=== PATIENT | male | born 1960 | race Caucasian/White ===

== ENCOUNTER 2019-11-10 02:46 | Inpatient (IN) | payer BC ==
[2019-11-10] MEDS ORDERED: SODIUM CHLORIDE 0.9% 1,000 ML IV STA (02:48)
[2019-11-10 03:15] LABS: Anisocytosis Slight; Basophils % (A) 0 %; Eosinophils # (A) 0.1 k/uL (0-0.7); Eosinophils % (A) 1 %; HCT 28.1 % (39.0-53.0); HGB 8.6 gm/dL (13.0-17.5); Hypochromasia Slight; Lymphocytes % (A) 26 %; MCH 26.1 pg (25.0-35.0); MCHC 30.8 g/dL (31.0-37.0); MCV 84.7 fL (80.0-100.0); Monocytes # (A) 0.5 k/uL (0-1.0); Monocytes % (A) 6 %; Neutrophils # (A) 5.1 k/uL (1.3-7.7); Neutrophils % (A) 65 %; Platelet Count 191 k/uL (150-450); RBC 3.32 m/uL (4.30-5.90); RDW 18.5 % (11.5-15.5); WBC 7.8 k/uL (3.8-10.6)
[2019-11-10 03:28] LABS: ALT 33 U/L (4-49); AST 68 U/L (17-59); African American GFR (CKD) >90 (>60 ml/min/1.73 sqM); Alkaline Phosphatase 68 U/L (38-126); Anion Gap 8 mmol/L; Blood Urea Nitrogen 27 mg/dL (9-20); Calcium 8.4 mg/dL (8.4-10.2); Carbon Dioxide 20 mmol/L (22-30); Chloride 109 mmol/L (98-107); Glucose 109 mg/dL (74-99); Non-African American GFR(CKD) >90 (>60 ml/min/1.73 sqM); Potassium 4.3 mmol/L (3.5-5.1); Sodium 137 mmol/L (137-145); Total Bilirubin 1.2 mg/dL (0.2-1.3); Total Protein 6.6 g/dL (6.3-8.2)
[2019-11-10 03:30] LABS: INR 1.4 (<1.2); Partial Thromboplastin Time 25.7 sec (22.0-30.0)
--- NOTE | 2019-11-10 03:30 | ED ---
GI Bleed HPI - General Stated complaint: GI Bleed Time Seen by Provider: 11/10/19 02:48 Source: patient, EMS Mode of arrival: EMS Limitations: no limitations - History of Present Illness Initial comments: Ash is a 59-year-old alcoholic male who presents to the ER today via EMS for evaluation of upper GI bleed. Patient reports that he is a daily drinker, he states that he was hospitalized in an in-hospital on [facility] at the beginning of July. He states that he underwent an emergency procedure due to upper GI bleeding at that time and was told that his chronic cough is caused him to have his esophagus rupture. Patient reports he receive blood transfusion anoscope and was told that he was cauterized at that time. Amauri coombs reports he has continued to drink since that time he reports that he usually has a couple beers after work everyday. He states that he only had one beer yesterday and felt nauseated so he decided to lay down. Patient states he had an episode of bloody vomit however early in the morning this morning November 09 he had a large volume but he vomit which prompted him to call EMS. Patient denies any chest pain palpitations lightheadedness. He's not certain what is hemoglobin was after discharge from his previous hospitalization but does state that he received at least 2 units of blood during the hospitalization. - Related Data Allergies Allergy/AdvReac Type Severity Reaction Status Date / Time No Known Allergies Allergy Verified 11/10/19 02:57 Review of Systems ROS Statement: Those systems with pertinent positive or pertinent negative responses have been documented in the HPI. ROS Other: All systems not noted in ROS Statement are negative. Past Medical History Additional Past Medical History / Comment(s): esophogeal bleed, hep C History of Any Multi-Drug Resistant Organisms: None Reported Additional Past Surgical History / Comment(s): esophogeal repair. Past Psychological History: No Psychological Hx Reported Smoking Status: Current every day smoker Past Alcohol Use History: Daily Past Drug Use History: Marijuana General Exam - General Exam Comments Initial Comments: Physical Exam GENERAL: Chronically ill-appearing 59-year-old male appears much older than stated age. HENT: Normocephalic, Atraumatic. Rhinophyma EYES: PERRL, EOMI Conjunctival pallor No scleral icterus PULMONARY: Unlabored respirations. CARDIOVASCULAR: There is a regular rate and rhythm without any murmurs gallops or rubs. ABDOMEN: Soft and nontender with normal bowel sounds. Mild epigastric discomfort to palpation SKIN: Skin is pale : Deferred NEUROLOGIC: Patient is alert and oriented x3. Moving all extremities spontaneously MUSCULOSKELETAL: Normal extremities with adequate strength and full range of motion. No lower extremity swelling or edema. No calf tenderness. PSYCHIATRIC: Normal psychiatric evaluation. Limitations: no limitations Course Vital Signs 11/10/19 11/10/19 02:54 03:43 Temperature 98.1 F Pulse Rate 95 87 Respiratory 18 18 Rate Blood Pressure 138/84 127/63 O2 Sat by Pulse 99 97 Oximetry Medical Decision Making - Medical Decision Making Patient was seen and evaluated, history is obtained from patient History and physical exam are concerning for alcoholic upper GI bleed Patient's hemodynamically stable with labs resulted with anemia uncertain of what the patient's baseline is however he has no hypotension or tachycardia therefore I have a high suspicion that this is likely a chronic anemia AST mildly elevated, INR mildly elevated In the patient's history and physical exam although he's had no vomiting here in the emergency department I do feel he warrants admission to the hospital for further evaluation by gastroenterology. Patient care was discussed with the on- call medical seen Dr. Luu agrees with plan for admission, IV medications as ordered, consult to gastroenterology. Considering the patient is hemodynam ically stable at this time with no vomiting does not warrant ICU admission. - Lab Data Result diagrams: 11/10/19 02:57 11/10/19 02:57 Lab Results 11/10/19 11/10/19 11/10/19 Range/Units 02:57 02:57 02:57 WBC 7.8 (3.8-10.6) k/uL RBC 3.32 L (4.30-5.90) m/uL Hgb 8.6 L (13.0-17.5) gm/dL Hct 28.1 L (39.0-53.0) % MCV 84.7 (80.0-100.0) fL MCH 26.1 (25.0-35.0) pg MCHC 30.8 L (31.0-37.0) g/dL RDW 18.5 H (11.5-15.5) % Plt Count 191 (150-450) k/uL Neutrophils % 65 % Lymphocytes % 26 % Monocytes % 6 % Eosinophils % 1 % Basophils % 0 % Neutrophils # 5.1 (1.3-7.7) k/uL Lymphocytes # 2.0 (1.0-4.8) k/uL Monocytes # 0.5 (0-1.0) k/uL Eosinophils # 0.1 (0-0.7) k/uL Basophils # 0.0 (0-0.2) k/uL Hypochromasia Slight Anisocytosis Slight PT 14.0 H (9.0-12.0) sec INR 1.4 H (<1.2) APTT 25.7 (22.0-30.0) sec Sodium 137 (137-145) mmol/L Potassium 4.3 (3.5-5.1) mmol/L Chloride 109 H (98-107) mmol/L Carbon Dioxide 20 L (22-30) mmol/L Anion Gap 8 mmol/L BUN 27 H (9-20) mg/dL Creatinine 0.58 L (0.66-1.25) mg/dL Est GFR (CKD-EPI)AfAm >90 (>60 ml/min/1.73 sqM) Est GFR (CKD-EPI)NonAf >90 (>60 ml/min/1.73 sqM) Glucose 109 H (74-99) mg/dL Plasma Lactic Acid Yogi (0.7-2.0) mmol/L Calcium 8.4 (8.4-10.2) mg/dL Total Bilirubin 1.2 (0.2-1.3) mg/dL AST 68 H (17-59) U/L ALT 33 (4-49) U/L Alkaline Phosphatase 68 (38-126) U/L Troponin I (0.000-0.034) ng/mL Total Protein 6.6 (6.3-8.2) g/dL Albumin 3.0 L (3.5-5.0) g/dL 11/10/19 11/10/19 Range/Units 02:57 02:57 WBC (3.8-10.6) k/uL RBC (4.30-5.90) m/uL Hgb (13.0-17.5) gm/dL Hct (39.0-53.0) % MCV (80.0-100.0) fL MCH (25.0-35.0) pg MCHC (31.0-37.0) g/dL RDW (11.5-15.5) % Plt Count (150-450) k/uL Neutrophils % % Lymphocytes % % Monocytes % % Eosinophils % % Basophils % % Neutrophils # (1.3-7.7) k/uL Lymphocytes # (1.0-4.8) k/uL Monocytes # (0-1.0) k/uL Eosinophils # (0-0.7) k/uL Basophils # (0-0.2) k/uL Hypochromasia Anisocytosis PT (9.0-12.0) sec INR (<1.2) APTT (22.0-30.0) sec Sodium (137-145) mmol/L Potassium (3.5-5.1) mmol/L Chloride (98-107) mmol/L Carbon Dioxide (22-30) mmol/L Anion Gap mmol/L BUN (9-20) mg/dL Creatinine (0.66-1.25) mg/dL Est GFR (CKD-EPI)AfAm (>60 ml/min/1.73 sqM) Est GFR (CKD-EPI)NonAf (>60 ml/min/1.73 sqM) Glucose (74-99) mg/dL Plasma Lactic Acid Yogi 3.1 H* (0.7-2.0) mmol/L Calcium (8.4-10.2) mg/dL Total Bilirubin (0.2-1.3) mg/dL AST (17-59) U/L ALT (4-49) U/L Alkaline Phosphatase (38-126) U/L Troponin I 0.021 (0.000-0.034) ng/mL Total Protein (6.3-8.2) g/dL Albumin (3.5-5.0) g/dL Disposition Clinical Impression: Upper gastrointestinal hemorrhage, Anemia, Alcohol abuse Disposition: ADMITTED IP TO THIS [facility] Condition: Serious Is patient prescribed a controlled substance at d/c from ED?: No Referrals: Nonstaff,Physician [Primary Care Provider] - 1-2 days
[2019-11-10] MEDS ORDERED: PANTOPRAZOLE 40 MG/10 ML VIAL IVP ONE (03:31)
[2019-11-10] MEDS ORDERED: ONDANSETRON 4 MG/2 ML VIAL IVP STA (03:31)
--- NOTE | 2019-11-10 04:06 | XR ---
EXAMINATION TYPE: XR abdomen acute w cxr DATE OF EXAM: 11/10/2019 COMPARISON: NONE HISTORY: Vomiting blood. TECHNIQUE: 4 views FINDINGS: Heart and mediastinum are normal. Lungs are clear of infiltrate. There is no pleural effusi on. There are no hilar masses. There is no sign of intestinal obstruction or pneumoperitoneum. Fecal pattern is normal. Bowel gas pa ttern is normal. There is no evidence of a mass. There are no pathologic calcifications over the kidn eys. There is almost empty density over the left mid abdomen that could be some medication. IMPRESSION: No active cardiopulmonary disease. Nonacute abdomen.
[2019-11-10] MEDS ORDERED: OCTREOTIDE 100 MCG/ML INJ IVP STA (04:41)
[2019-11-10] MEDS ORDERED: MORPHINE SULFATE 4 MG/ML SYRINGE IV PRN (04:42)
[2019-11-10] MEDS ORDERED: ONDANSETRON 4 MG/2 ML VIAL IVP PRN (04:42)
[2019-11-10] MEDS ORDERED: NALOXONE 0.4 MG/ML 1 ML VIAL IV PRN (04:42)
[2019-11-10] MEDS ORDERED: LORazepam 2 MG/ML INJ IV PRN ×2 (04:49)
[2019-11-10] MEDS ORDERED: THIAMINE 100 MG/ML 2 ML VIAL IM STA (04:49)
[2019-11-10] MEDS: OCTREOTIDE 500 MCG in SODIUM CHLORIDE 0.9% 250 ML IV STA ×2 (05:15→07:53)
[2019-11-10] MEDS ORDERED: SODIUM CHLORIDE 0.9% 1,000 ML IV SCH (06:30)
--- NOTE | 2019-11-10 06:59 | P.HPIM ---
History of Present Illness H&P Date: 11/10/19 Chief Complaint: GI bleed 59 year old with alcohol dependance and recent history of GI bleeding due to ? ruptured esophagus Patient reports that early in July in [place] he had an episode of GI bleeding required upper and lower endoscopy and needed some fixing something in his esophagus or stomach she is not sure of the details. He spent 3 days at the hospital and was discharged he doesn't know his blood level since then however he comes in today due to not feeling well all day yesterday and then throwing up just before sleeping at night very small amounts initially he thought that this was the cup cake that he ate but then later on after midnight he had another episode of vomiting very large amount of dark bloody and realized that she is having other episodes of GI bleeding this was also associated with dark bowel movement for which she decided come to the hospital for evaluation he didn't feel well he felt sweaty and tired. He also reported some epigastric pain rated it as 5 out of 10 in severity however he said since the procedure back in July she always had this pain. He said that he is not a heavy drinker anymore he only drinks 1 or 2 beers here and there is currently on vacation visiting here and he might had one or 2 beers yesterday he denies any IV drug abuse he admits to smoking and marijuana. He doesn't take any medications at home Currently he feels fine still has his chronic epigastric pain but denies any chest pain or trouble breathing denies any nausea or any further episodes of vomiting In the ED his hemoglobin was found to be 8.6 baseline is unknown and he had some elevated lactic acid Review of Systems Pertinent positives as noted in HPI. All other systems were reviewed and are negative Past Medical History Additional Past Medical History / Comment(s): esophogeal bleed, hep C History of Any Multi-Drug Resistant Organisms: None Reported Additional Past Surgical History / Comment(s): esophogeal repair. Past Psychological History: No Psychological Hx Reported Smoking Status: Current every day smoker Past Alcohol Use History: Daily Past Drug Use History: Marijuana Medications and Allergies Allergies Allergy/AdvReac Type Severity Reaction Status Date / Time No Known Allergies Allergy Verified 11/10/19 02:57 Physical Exam Vitals: Vital Signs Temp Pulse Resp BP Pulse Ox 11/10/19 05:33 87 18 147/89 97 11/10/19 03:43 87 18 127/63 97 11/10/19 02:54 98.1 F 95 18 138/84 99 Intake and Output 11/09/19 11/09/19 11/10/19 14:59 22:59 06:59 Other: Weight 63.503 kg Constitutional: No acute distress, conversant, pleasant Eyes: Anicteric sclerae, moist conjunctiva, no lid-lag Pupils equal round reactive to light ENMT: NC/AT Oropharynx clear, no erythema, exudates Neck: Supple, FROM, no masses, or JVD No carotid bruits No thyromegaly Lungs: Clear to auscultation Clear to percussion Normal respiratory effort, no accessory muscle use Cardiovascular: Heart regular in rate and rhythm, No murmurs, gallops, or rubs No peripheral edema Abdominal: Soft Mild discomfort to epigastric palpation, voluntary guarding, no rebound or rigidity Abdomen moving with respiration Normoactive bowel sounds No hepatomegaly, No splenomegaly No palpable mass No abdominal wall hernia noted Skin: Normal temperature, tone, texture, turgor No induration No subcutaneous nodules No rash, lesions No ulcers Extremities: No digital cyanosis No clubbing Pedal pulses intact and symmetrical Radial pulses intact and symmetrical No calf tenderness Psychiatric: Alert and oriented to person, place and time Appropriate affect fair judgement Neuro Muscles Strength 5/5 in all 4 extremities Sensation to light touch grossly present throughout Cranial nerves II-XII grossly intact No focal sensory deficits Lymphatics: no palpable cervical or supraclavicular , or inguinal lymph nodes Results CBC & Chem 7: 11/10/19 02:57 11/10/19 02:57 Labs: Abnormal Lab Results - Last 24 Hours (Table) 11/10/19 11/10/19 11/10/19 Range/Units 02:57 02:57 02:57 RBC 3.32 L (4.30-5.90) m/uL Hgb 8.6 L (13.0-17.5) gm/dL Hct 28.1 L (39.0-53.0) % MCHC 30.8 L (31.0-37.0) g/dL RDW 18.5 H (11.5-15.5) % PT 14.0 H (9.0-12.0) sec INR 1.4 H (<1.2) Chloride 109 H (98-107) mmol/L Carbon Dioxide 20 L (22-30) mmol/L BUN 27 H (9-20) mg/dL Creatinine 0.58 L (0.66-1.25) mg/dL Glucose 109 H (74-99) mg/dL Plasma Lactic Acid Yogi (0.7-2.0) mmol/L AST 68 H (17-59) U/L Albumin 3.0 L (3.5-5.0) g/dL 11/10/19 Range/Units 02:57 RBC (4.30-5.90) m/uL Hgb (13.0-17.5) gm/dL Hct (39.0-53.0) % MCHC (31.0-37.0) g/dL RDW (11.5-15.5) % PT (9.0-12.0) sec INR (<1.2) Chloride (98-107) mmol/L Carbon Dioxide (22-30) mmol/L BUN (9-20) mg/dL Creatinine (0.66-1.25) mg/dL Glucose (74-99) mg/dL Plasma Lactic Acid Yogi 3.1 H* (0.7-2.0) mmol/L AST (17-59) U/L Albumin (3.5-5.0) g/dL Assessment and Plan Assessment: Acute upper GI bleeding Acute blood loss anemia unknown baseline Lactic acidosis Plan GI consultation Nothing by mouth PPI IV Octreotide IV Normal saline Monitor hemoglobin, transfuse for hemoglobin less than 7 or if patient sym ptomatic monitoring in the ICU Chronic conditions Hepatitis C Alcohol dependence CODE STATUS full code DVT prophylaxis: mechanical due to GI bleeding Discussed with: Patient, ER, RN Anticipated length of stay > than [address]: home A total of 75 minutes was spent on the care of this complex patient more than 50% of the time was spent in counseling and care coordination.
[2019-11-10] MEDS: LORazepam 2 MG/ML INJ IV PRN (08:35)
[2019-11-10] MEDS: PANTOPRAZOLE 40 MG/10 ML VIAL IVP SCH ×2 (09:36→20:20)
[2019-11-10 11:32] VITALS: BMI 13.6
[2019-11-10 11:34] LABS: Anisocytosis Slight; Basophils % (A) 0 %; Eosinophils % (A) 0 %; HCT 24.1 % (39.0-53.0); HGB 7.3 gm/dL (13.0-17.5); Hypochromasia Slight; Lymphocytes % (A) 27 %; MCH 25.8 pg (25.0-35.0); MCHC 30.5 g/dL (31.0-37.0); MCV 84.5 fL (80.0-100.0); Mean Platelet Volume 8.2; Monocytes # (A) 0.5 k/uL (0-1.0); Monocytes % (A) 6 %; Neutrophils # (A) 4.8 k/uL (1.3-7.7); Neutrophils % (A) 65 %; Platelet Count 145 k/uL (150-450); RBC 2.85 m/uL (4.30-5.90); RDW 18.4 % (11.5-15.5); WBC 7.3 k/uL (3.8-10.6)
--- NOTE | 2019-11-10 11:52 | CONS ---
CONSULTATION PULMONARY/CRITICAL CARE CONSULTATION: DATE OF SERVICE: 11/10/2019 This is a 59-year-old male who apparently resides in [place]. He is down in [place] apparently at a cottage that he rents every year. He apparently drinks quite heavily. He recently had an episode in [place] of bleeding with bleeding esophageal varices. He presented to the emergency room coughing up bright red blood and dark blood as well as having black tarry bowel movements. He apparently was in the [facility] at the beginning on July. He apparently had an upper GI or upper endoscopy and apparently had something cauterized at that time. We were thinking that maybe it was esophageal varices. Anyway, currently, the patient is reasonably stable. He was seen in the emergency room yesterday. He was brought in there by EMS. He is currently on room air. His saline IV is running at 100 mL an hour and he is getting octreotide at 25 mcg/hour. His hemoglobin is stable at 8.6. His blood pressure is stable. He does have a history of hypertension, hepatitis C, probable esophageal varices, as well as chronic alcohol and tobacco use. Since he has been here in our ICU, the nurse tells me he has not had any further episodes of vomiting up blood. He otherwise is very stable. ALLERGIES: Denied. MEDICATIONS: At home include omeprazole and ibuprofen. PAST MEDICAL HISTORY: As mentioned includes hepatitis C, hypertension, esophageal varices, chronic alcohol and tobacco use. SURGICAL HISTORY: Includes a recent EGD with cauterization of esophageal varices. SOCIAL HISTORY: Positive for ongoing tobacco use and daily alcohol abuse. He also has smokes marijuana. FAMILY HISTORY: Noncontributory. Mother and father apparently were healthy. REVIEW OF SYSTEMS: CONSTITUTIONAL: Negative. NEUROLOGIC: Negative. HEENT: Negative. CARDIOVASCULAR: Negative. PULMONARY: Negative. GI: Hematemesis and melena. : Negative. RHEUMATOLOGIC: Negative. IMMUNOLOGIC: Negative. ENDOCRINOLOGIC: Negative. DERMATOLOGIC: Negative. Current vital signs are reviewed, temperature is 98.7, heart rate 87, respiratory rate 17, blood pressure 136/87 mean 103, room air saturation 95%. Appears in no acute distress. HEENT: Examination is grossly unremarkable. No supplemental oxygen. NECK: Supple, full range of motion. No adenopathy. Neck veins are flat. CARDIOVASCULAR: Examination reveals regular rhythm and rate. S1, S2 normal. No S3, S4, murmur. LUNGS: Reveal clear breath sounds equal. No wheezes, rhonchi, or crackles. ABDOMEN: Soft, bowel sounds are noted. EXTREMITIES: Intact. No cyanosis, clubbing, or edema. SKIN: Without rash. NEUROLOGIC: Examination is brief but nonfocal. LABS: Reviewed. White count 7.8, hemoglobin 8.6, hematocrit 28.1, platelet count 191,000. PT 14, INR 1.4, PTT is 25.7. Sodium 137, potassium 4.3, chloride is 109, CO2 is 20, anion gap is 8. BUN and creatinine were 27 and 0.58. Lactic acid was 3.1, repeat 1.7, calcium 8.4, bilirubin 1.2, AST 68. Albumin 3. Microbiology is negative or pending. Acute abdominal series was done. It showed no acute changes in the abdomen or chest. CURRENT MEDICATIONS: Reviewed. He is currently on Ativan per CIWA protocol, morphine as needed, Narcan, octreotide 25 mcg/hour, Zofran p.r.n., and Protonix 40 mg IV push q.12 as well as saline at 100 mL an hour. He is also getting thiamine. ASSESSMENT: 1. Upper gastrointestinal bleed, likely related to esophageal varices or bleeding as the patient had a recent episode in [place] in late July. 2. History of hepatitis C. 3. Vague history of hypertension. 4. History of esophageal varices. 5. History of chronic alcohol and tobacco abuse. 6. Mild coagulopathy secondary to alcoholic liver disease. PLAN: The patient is currently not having any additional bleeding. He is on octreotide at 25 mcg/hour. He is getting saline at 100 mL an hour. Not requiring any supplemental oxygen. Will continue to follow. Prognosis is guarded. No additional recommendations are made. MMODL / IJN: [id number] /
[2019-11-10 11:57] LABS: Glucose,Whole Blood 140 mg/dL (75-99)
[2019-11-10] MEDS ORDERED: PROPOFOL 10 MG/ML 20 ML VIAL IV ONE (13:46)
[2019-11-10] MEDS ORDERED: IV FLUID CONTINUATION 200 ML IV ONE (13:47)
--- NOTE | 2019-11-10 14:00 | P.PCN ---
Date of Procedure: 11/10/19 Procedure(s) Performed: BRIEF HISTORY: Patient is a 59-year-old, pleasant, male admitted hospital with acute upper GI bleed. History of heavy alcohol abuse. Hemoglobin was 7.4 g/dL. He is scheduled for an upper endoscopy today to evaluate further.. PROCEDURE PERFORMED: Esophagogastroduodenoscopy. PREOPERATIVE DIAGNOSIS:Acute upper GI bleed]. IV sedation per anesthesia. PROCEDURE: After informed consent was obtained, the patient was brought into the endoscopy unit. IV sedation was administered by Anesthesia under continuous monitoring. Initially the Olympus GIF-140 video endoscope was inserted into the mouth. Esophagus intubated without any difficulty. It was gradually advanced into the stomach and duodenum and carefully examined. The bulb and the second part of the duodenum appeared normal. The scope at this time was withdrawn to the stomach, adequately insufflated with air, and upon careful examination, mucosa of the antrum,appeared normal. There was some old blood noted in the stomach. Mucosa of the body, cardia and the fundu had changes consistent with portal hypertensive gastropathy but no active bleeding noted. The scope was then withdrawn into the esophagus. The GE junction was located at 39 cm from the incisors. The esophagus appeared normal. There were no erosions or ulcerations seen and the patient tolerated the procedure well. IMPRESSION: 1 Moderate to severe portal hypertensive gastropathy]. 2 No evidence of esophageal or gastric varices. RECOMMENDATIONS: The findings of this examination were discussed with the patient. He'll be started on a clear liquid diet. Continue Protonix 40 mg twice daily.
[2019-11-10 14:06] LABS: Glucose,Whole Blood 116 mg/dL (75-99)
--- NOTE | 2019-11-10 15:32 | P.PN ---
Subjective Progress Note Date: 11/10/19 (delayed charting seen at 1220) Principal diagnosis: GI bleed Patient is a 59-year-old male with a history of prior esophageal bleeding with esophageal perforation, hepatitis C, and alcohol dependency who presented to the hospital secondary to GI bleed area of note patient reports an episode of GI bleeding in July 2019. He lives in [place] and was hospitalized at that point in time an upper and lower endoscopy that needed some apparent either his esophagus or stomach. He was on vacation here in the [place] area and developed bloody emesis and melena and presented to the hospital. On arrival to the ER here his vital signs were within normal limits. Laboratory analysis showed a hemoglobin of 8.6 with an unknown baseline. He was at admitted for possible GI bleed. He was started on IV Protonix twice daily, octreotide, CIWA protocol, and IV fluids. Gastroenterology was consulted and serial CBCs were ordered. Her underwent EGD on 11/09 which showed Severe portal hypertnesive gastropathy but no varicies, and old blood as noted in the stomach without active bleeding. Patient seen and examined at bedside. He is slightly lethargic as he required Ativan, CIWA protocol earlier today. He denies any current abdominal pain, nausea, or vomiting. He is feeling tired. Objective - Vital Signs Vital signs: Vital Signs Temp 98.4 F 11/10/19 12:00 Pulse 73 11/10/19 14:15 Resp 18 11/10/19 14:15 BP 173/99 11/10/19 14:15 Pulse Ox 95 11/10/19 14:15 Intake & Output 11/09/19 11/10/19 11/10/19 18:59 06:59 18:59 Intake Total 907.917 Output Total 850 Balance 57.917 Weight 48 kg 48 kg Intake: IV 100 Intake, IV Titration 807.917 Amount Octreotide 500 mcg In 32.917 Sodium Chloride 0.9% 250 ml @ 25 MCG/HR 12.5 mls/ hr IV .Q20H STA Rx#: [id number] Sodium Chloride 0.9% 1, 775 000 ml @ 100 mls/hr IV . Q10H MARILEE Rx#:[id number] Output: Urine 850 - Exam General: non toxic, no distress, appears older than stated age, disheveled Derm: warm, dry Head: atraumatic, normocephalic, symmetric Eyes: EOMI, no lid lag, anicteric sclera Mouth: no lip lesion, mucus membranes moist Cardiovascular: S1S2 reg, no murmur, positive posterior tibial pulse bilateral, Lungs: Course bs bilateral , no accessory muscle use Abdominal: soft, nontender to palpation, no guarding, no appreciable organomegaly Ext: no gross muscle atrophy, no edema, no contractures Neuro: CN II-XI grossly intact, no focal neuro deficits Psych: Alert, oriented to situation, impulsive, no tremors, unable to sit still, grabbing at wires. - Labs CBC & Chem 7: 11/10/19 11:05 11/10/19 02:57 Labs: Abnormal Lab Results - Last 24 Hours (Table) 11/10/19 11/10/19 11/10/19 Range/Units 02:57 02:57 02:57 RBC 3.32 L (4.30-5.90) m/uL Hgb 8.6 L (13.0-17.5) gm/dL Hct 28.1 L (39.0-53.0) % MCHC 30.8 L (31.0-37.0) g/dL RDW 18.5 H (11.5-15.5) % Plt Count (150-450) k/uL PT 14.0 H (9.0-12.0) sec INR 1.4 H (<1.2) Chloride 109 H (98-107) mmol/L Carbon Dioxide 20 L (22-30) mmol/L BUN 27 H (9-20) mg/dL Creatinine 0.58 L (0.66-1.25) mg/dL Glucose 109 H (74-99) mg/dL POC Glucose (mg/dL) (75-99) mg/dL Plasma Lactic Acid Yogi (0.7-2.0) mmol/L AST 68 H (17-59) U/L Albumin 3.0 L (3.5-5.0) g/dL 11/10/19 11/10/19 11/10/19 Range/Units 02:57 06:27 11:05 RBC 2.85 L (4.30-5.90) m/uL Hgb 7.3 L (13.0-17.5) gm/dL Hct 24.1 L (39.0-53.0) % MCHC 30.5 L (31.0-37.0) g/dL RDW 18.4 H (11.5-15.5) % Plt Count 145 L (150-450) k/uL PT (9.0-12.0) sec INR (<1.2) Chloride (98-107) mmol/L Carbon Dioxide (22-30) mmol/L BUN (9-20) mg/dL Creatinine (0.66-1.25) mg/dL Glucose (74-99) mg/dL POC Glucose (mg/dL) 116 H (75-99) mg/dL Plasma Lactic Acid Yogi 3.1 H* (0.7-2.0) mmol/L AST (17-59) U/L Albumin (3.5-5.0) g/dL 11/10/19 Range/Units 11:55 RBC (4.30-5.90) m/uL Hgb (13.0-17.5) gm/dL Hct (39.0-53.0) % MCHC (31.0-37.0) g/dL RDW (11.5-15.5) % Plt Count (150-450) k/uL PT (9.0-12.0) sec INR (<1.2) Chloride (98-107) mmol/L Carbon Dioxide (22-30) mmol/L BUN (9-20) mg/dL Creatinine (0.66-1.25) mg/dL Glucose (74-99) mg/dL POC Glucose (mg/dL) 140 H (75-99) mg/dL Plasma Lactic Acid Yogi (0.7-2.0) mmol/L AST (17-59) U/L Albumin (3.5-5.0) g/dL Assessment and Plan Assessment: Upper GI bleed with acute blood loss anemia due to portal gastropathy - continue with protonix - clear liquid diet - Octreotide gtt per GI - Serial CBC ETOH dependency with withdrawal - CIWA - Thiamine - folic acid Hep C - outpatient follow-up Thrombocytopenia -Likely secondary to underlying liver disease -Follow CBC Tobacco abuse - nicotine replacement - cessation DVT prophylaxis: SCDs Discussed with: Patient, nursing Anticipated discharge: 2-[address]: Home A total of 25 minutes was spent on the care of this complex patient more than 50% of the time was spent in counseling and care coordination.
[2019-11-10] MEDS: SODIUM CHLORIDE 0.45% 1,000 ML IV SCH (17:03)
[2019-11-10] MEDS: THIAMINE 100 MG TAB PO SCH (18:15)
[2019-11-10 20:23] LABS: Anisocytosis Slight; Basophils % (A) 0 %; Eosinophils % (A) 1 %; HCT 23.3 % (39.0-53.0); HGB 7.4 gm/dL (13.0-17.5); Hypochromasia Moderate; Lymphocytes # (A) 2.3 k/uL (1.0-4.8); Lymphocytes % (A) 37 %; MCH 27.4 pg (25.0-35.0); MCHC 31.9 g/dL (31.0-37.0); MCV 85.8 fL (80.0-100.0); Mean Platelet Volume 8.4; Monocytes # (A) 0.5 k/uL (0-1.0); Monocytes % (A) 9 %; Neutrophils # (A) 3.3 k/uL (1.3-7.7); Neutrophils % (A) 52 %; Platelet Count 152 k/uL (150-450); RBC 2.72 m/uL (4.30-5.90); WBC 6.2 k/uL (3.8-10.6)
--- NOTE | 2019-11-10 22:32 | CONS ---
CONSULTATION DATE OF DICTATION: 11/10/2019 REASON FOR CONSULTATION: Acute upper GI bleed. HISTORY OF PRESENT ILLNESS: The patient is a 59-year-old pleasant white male with history of alcohol abuse, admitted to the hospital with multiple episodes of hematemesis followed by coffee- ground emesis. The patient has a history of heavy alcohol abuse. He was visiting his family in [place]. While he was in [place] about 2 months ago he had a similar episode of severe acute upper GI bleed, and according to him he had an upper endoscopy as well as colonoscopy done, results of which are not available at the time of this dictation. He does not recall having any esophageal varices. He came into the emergency room and was noted to have a hemoglobin of 7.4 g/dL. No prior history of peptic ulcer disease. He denies any NSAID use. He drinks about 5 to 6 beers every day. PAST MEDICAL HISTORY: Past medical history is significant for alcohol abuse, history of chronic hepatitis C infection. PAST SURGICAL HISTORY: EGD, colonoscopy 2 months ago. SOCIAL HISTORY: Chronic smoker. Heavy alcohol abuse, as mentioned above. FAMILY HISTORY: Unremarkable. ALLERGIES: NO KNOWN DRUG ALLERGIES. REVIEW OF SYSTEMS: CARDIOPULMONARY: No chest pain or shortness of breath. GENITOURINARY: No dysuria or hematuria. MUSCULOSKELETAL: Unremarkable. SKIN: Unremarkable. ENDOCRINE: Unremarkable. PSYCHIATRIC: Unremarkable. NEUROLOGY: Unremarkable. ENT/VISION: Unremarkable. CONSTITUTIONAL: No recent weight loss. No fever, chills, night sweats. PHYSICAL EXAMINATION: He appears comfortable. No apparent distress. Vital signs are stable. Blood pressure 138/84, pulse rate 95, temperature 98.1. HEENT examination unremarkable. Conjunctivae pink. Sclerae anicteric. Oral cavity no lesions. NECK: No JVD or lymph node enlargement. CHEST: Clear to auscultation. HEART: Regular rate and rhythm. ABDOMEN: Soft. Bowel sounds are positive. No organomegaly. EXTREMITIES: No pedal edema. NEUROLOGIC: Alert and oriented x3. No focal deficits. LABS: Labs done at the time of admission to the hospital show hemoglobin was 7.4, WBC 6.2, platelets 152. AST and ALT are 68 and 33, respectively. T-bilirubin 1.2, alkaline phosphatase 68. BUN 27, creatinine 0.58. IMPRESSION: 1. Acute upper gastrointestinal bleed in this patient who has a history of heavy alcohol abuse, admitted to the hospital with a hemoglobin of 7.4 g/dL, presently on IV Sandostatin drip as well as IV Protonix. Repeat hemoglobin is 7.4 g/dL. Recent EGD and colonoscopy, according to the patient, while he was living in [place] showed an esophageal tear. No evidence of esophageal varices, according to the patient. 2. Heavy alcohol abuse. 3. History of chronic hepatitis C infection. RECOMMENDATIONS: 1. Keep him n.p.o. 2. Proceed with an upper endoscopy. 3. In the meantime, continue with IV Protonix and IV Sandostatin. 4. CBC every 6 hours. 5. Watch for alcohol withdrawal. 6. Repeat labs in the morning. Will follow with you closely. Thank you for this consultation. THEA / AMENA: [id number] /
[2019-11-11] MEDS: LORazepam 2 MG/ML INJ IV PRN ×2 (00:25→10:29)
[2019-11-11 00:27] LABS: Anisocytosis Slight; Basophils % (A) 1 %; Eosinophils % (A) 1 %; HCT 23.4 % (39.0-53.0); HGB 7.3 gm/dL (13.0-17.5); Hypochromasia Slight; Lymphocytes # (A) 2.3 k/uL (1.0-4.8); Lymphocytes % (A) 38 %; MCH 26.1 pg (25.0-35.0); MCV 84.4 fL (80.0-100.0); Mean Platelet Volume 9.1; Monocytes # (A) 0.5 k/uL (0-1.0); Monocytes % (A) 8 %; Neutrophils # (A) 3.1 k/uL (1.3-7.7); Neutrophils % (A) 50 %; Platelet Count 135 k/uL (150-450); RBC 2.77 m/uL (4.30-5.90); RDW 18.3 % (11.5-15.5); WBC 6.1 k/uL (3.8-10.6)
[2019-11-11 06:31] LABS: ALT 30 U/L (4-49); AST 66 U/L (17-59); African American GFR (CKD) >90 (>60 ml/min/1.73 sqM); Albumin 2.6 g/dL (3.5-5.0); Alkaline Phosphatase 64 U/L (38-126); Anion Gap 3 mmol/L; Blood Urea Nitrogen 26 mg/dL (9-20); Calcium 7.7 mg/dL (8.4-10.2); Carbon Dioxide 25 mmol/L (22-30); Chloride 108 mmol/L (98-107); Glucose 98 mg/dL (74-99); Non-African American GFR(CKD) >90 (>60 ml/min/1.73 sqM); Potassium 3.7 mmol/L (3.5-5.1); Sodium 136 mmol/L (137-145); Total Bilirubin 0.7 mg/dL (0.2-1.3); Total Protein 5.8 g/dL (6.3-8.2)
[2019-11-11 06:33] LABS: Anisocytosis Slight; Basophils % (A) 1 %; Eosinophils # (A) 0.1 k/uL (0-0.7); Eosinophils % (A) 2 %; HCT 23.1 % (39.0-53.0); HGB 7.3 gm/dL (13.0-17.5); Hypochromasia Moderate; Lymphocytes # (A) 2.1 k/uL (1.0-4.8); Lymphocytes % (A) 39 %; MCH 27.2 pg (25.0-35.0); MCHC 31.7 g/dL (31.0-37.0); MCV 85.9 fL (80.0-100.0); Monocytes # (A) 0.4 k/uL (0-1.0); Monocytes % (A) 8 %; Neutrophils # (A) 2.6 k/uL (1.3-7.7); Neutrophils % (A) 49 %; Platelet Count 151 k/uL (150-450); RBC 2.69 m/uL (4.30-5.90); RDW 18.2 % (11.5-15.5); WBC 5.4 k/uL (3.8-10.6)
[2019-11-11] MEDS: THIAMINE 100 MG TAB PO SCH ×2 (06:36→17:11)
[2019-11-11] MEDS: SODIUM CHLORIDE 0.45% 1,000 ML IV SCH ×2 (06:42→17:11)
[2019-11-11] MEDS ORDERED: Potassium Replacement Protocol 1 EACH MISC MISCELLANE PRN (06:45)
[2019-11-11] MEDS ORDERED: POTASSIUM CHLORIDE ER 20 MEQ TAB.ER PO SCH (07:00)
--- NOTE | 2019-11-11 10:50 | PN ---
PROGRESS NOTE DATE OF SERVICE: 11/11/2019 INTERVAL HISTORY: This is a 59-year-old gentleman with a history of hepatitis C, hypertension, history of esophageal varices, and also chronic alcohol and tobacco abuse. He also has a mild coagulopathy secondary to alcoholic liver disease and was admitted to the hospital back on November 09 for GI bleed. He apparently was vomiting up bright red blood and he also had tarry stools. He apparently lives in [place], [place]. He was recently, at the end of July, at a hospital in [place] for a similar episode. He apparently had an upper endoscopy at that time and had cauterization of esophageal varices for bleeding sites either in the stomach or the esophagus. The patient did have an EGD with Dr. Baptiste yesterday. He had moderate to severe portal hypertension and gastropathy. No evidence of esophageal or gastric varices. There was some old blood noted in the stomach. No interventions were performed at that time. She recommended conservative management with Protonix twice a day. Currently, he is resting relatively comfortable. He did receive some Ativan via CIWA protocol last night. He is a little lethargic. He is not receiving any supplemental oxygen. He is getting half-normal saline at 75 mL an hour. His hemoglobin is 7.3. PHYSICAL EXAMINATION: VITAL SIGNS: Current vital signs include a temperature which is 98 degrees, heart rate which is 56, respiratory rate 18, blood pressure 155/76, mean 102, room air saturations are 94%. GENERAL: Appears somewhat lethargic and somnolent. Does arouse. Does answer questions appropriately. No conversational dyspnea or audible wheezing. HEENT: Examination is grossly unremarkable. NECK: Supple, full range of motion. No adenopathy. Neck veins are flat. CARDIOVASCULAR: Examination reveals regular rhythm and rate. Heart rate in the low 60s. S1, S2 normal. LUNGS: Relatively clear. Breath sounds equal. ABDOMEN: Soft. Bowel sounds are noted. No masses or tenderness. EXTREMITIES: Intact. No cyanosis, clubbing, or edema. SKIN: Without rash. NEUROLOGIC: Examination is brief but nonfocal. LABS: Reviewed. White count 5.4, hemoglobin 7.3, hematocrit 23.1, platelet count 151,000. Sodium 136, potassium 3.7, chloride 108, CO2 25, anion gap is 3. BUN and creatinine were 26 and 0.69. Albumin 2.6. Microbiology is negative. No recent x-rays were reviewed. MEDICATIONS: Reviewed. Currently, he is on folic acid, Ativan per [facility] protocol, morphine sulfate p.r.n., Narcan, Zofran, Protonix 40 IV push twice a day, potassium replacement, half- normal saline at 75 mL an hour and thiamine. ASSESSMENT: 1. Gastrointestinal bleed secondary to alcoholic gastritis and alcoholic gastropathy with moderate to severe portal hypertension and without esophageal or gastric varices. 2. Recent episode of gastrointestinal bleed, in [place], in late July, status post EGD with cauterization. 3. Alcoholic liver disease with mild alcoholic coagulopathy. 4. Anemia secondary to gastrointestinal bleed. 5. History of hepatitis C. 6. Vague history of hypertension. 7. Vague history of esophageal varices. 8. History of chronic alcohol and tobacco abuse. 9. General medical debility. 10.Intonation. PLAN: The patient is going to be observed further in the ICU. He remains on fluids. EGD was done on November 09. The patient did not have any active bleeding. There was no gastric or esophageal varices of note. No intervention. We will continue to follow. Prognosis is guarded. He is counseled about the importance of alcohol and tobacco cessation. CRITICAL CARE TIME: 32 minute. THEA / MAKEDAN: [id number] /
[2019-11-11] MEDS: FOLIC ACID 1 MG TAB PO SCH (12:35)
[2019-11-11] MEDS: PANTOPRAZOLE 40 MG/10 ML VIAL IVP SCH ×2 (12:35→19:55)
[2019-11-11] MEDS ORDERED: LORazepam 2 MG/ML INJ IV PRN ×3 (13:37)
--- NOTE | 2019-11-11 15:23 | P.PN ---
Subjective Progress Note Date: 11/11/19 (delayed charting seen at 1030) Principal diagnosis: GI bleed Patient is a 59-year-old male with a history of prior esophageal bleeding with esophageal perforation, hepatitis C, and alcohol dependency who presented to the hospital secondary to GI bleed area of note patient reports an episode of GI bleeding in July 2019. He lives in [place] and was hospitalized at that point in time an upper and lower endoscopy that needed some apparent either his esophagus or stomach. He was on vacation here in the [place] area and developed bloody emesis and melena and presented to the hospital. On arrival to the ER here his vital signs were within normal limits. Laboratory analysis showed a hemoglobin of 8.6 with an unknown baseline. He was at admitted for possible GI bleed. He was started on IV Protonix twice daily, octreotide, CIWA protocol, and IV fluids. Gastroenterology was consulted and serial CBCs were ordered. Her underwent EGD on 11/09 which showed Severe portal hypertnesive gastropathy but no varicies, and old blood as noted in the stomach without active bleeding. He did devlop some bradycardia overnight on 11/09. Patient seen and examined at bedside. He is sleeping when I enter the room he was sleeping. He reports that he is stillhaving some abdominal pain, no nausea, no vomiting. He is upset becasue he feels that the doctor in [place] was wrong and he has been bleeding for 5 moths and that this has nothing to do with his alcoholism as he was told it is from coughing so hard. He states that he doesn't want to hear anything else about his drinking. He states that he has been smelling like for the last 6 months and that he has been bleeding internally. He denies that his smoking could be contributing to his cough. Objective - Vital Signs Vital signs: Vital Signs Temp 98.1 F 11/11/19 12:00 Pulse 54 L 11/11/19 12:00 Resp 14 11/11/19 12:00 BP 151/81 11/11/19 12:00 Pulse Ox 95 11/11/19 12:00 Intake & Output 11/10/19 11/11/19 11/11/19 18:59 06:59 18:59 Intake Total 1257.917 900 450 Output Total 1150 1960 900 Balance 107.917 -1060 -450 Weight 48 kg 66.2 kg Intake: IV 100 825 75 .9 825 75 Intake, IV Titration 1157.917 75 375 Amount Octreotide 500 mcg In 32.917 Sodium Chloride 0.9% 250 ml @ 25 MCG/HR 12.5 mls/ hr IV .Q20H STA Rx#: [id number] Sodium Chloride 0.45% 1, 150 75 375 000 ml @ 75 mls/hr IV . [id number] MARILEE Rx#:[id number] Sodium Chloride 0.9% 1, 975 000 ml @ 100 mls/hr IV . Q10H MARILEE Rx#:[id number] Output: Urine 1150 1960 900 Other: Voiding Method Urinal Urinal - Exam General: ill appearing, no distress, appears older than stated age, disheveled Derm: warm, dry Head: atraumatic, normocephalic, symmetric Eyes: EOMI, no lid lag, anicteric sclera Mouth: no lip lesion, mucus membranes moist Cardiovascular: S1S2 reg, no murmur, positive posterior tibial pulse bilateral, Lungs: Course bs bilateral , no accessory muscle use Abdominal: soft, nontender to palpation, no guarding, no appreciable organomegaly Ext: no gross muscle atrophy, no edema, no contractures Neuro: CN II-XI grossly intact, no focal neuro deficits. fidgiting Psych: Alert, angry and upset, then falls asleep - Labs CBC & Chem 7: 11/11/19 05:18 11/11/19 05:18 Labs: Abnormal Lab Results - Last 24 Hours (Table) 11/10/19 11/10/19 11/11/19 Range/Units 06:27 19:09 00:17 RBC 2.72 L 2.77 L (4.30-5.90) m/uL Hgb 7.4 L 7.3 L (13.0-17.5) gm/dL Hct 23.3 L 23.4 L (39.0-53.0) % RDW 18.0 H 18.3 H (11.5-15.5) % Plt Count 135 L (150-450) k/uL Sodium (137-145) mmol/L Chloride (98-107) mmol/L BUN (9-20) mg/dL POC Glucose (mg/dL) 116 H (75-99) mg/dL Calcium (8.4-10.2) mg/dL AST (17-59) U/L Total Protein (6.3-8.2) g/dL Albumin (3.5-5.0) g/dL 11/11/19 11/11/19 Range/Units 05:18 05:18 RBC 2.69 L (4.30-5.90) m/uL Hgb 7.3 L (13.0-17.5) gm/dL Hct 23.1 L (39.0-53.0) % RDW 18.2 H (11.5-15.5) % Plt Count (150-450) k/uL Sodium 136 L (137-145) mmol/L Chloride 108 H (98-107) mmol/L BUN 26 H (9-20) mg/dL POC Glucose (mg/dL) (75-99) mg/dL Calcium 7.7 L (8.4-10.2) mg/dL AST 66 H (17-59) U/L Total Protein 5.8 L (6.3-8.2) g/dL Albumin 2.6 L (3.5-5.0) g/dL Assessment and Plan Assessment: Upper GI bleed with acute blood loss anemia due to portal gastropathy - continue with protonix - clear liquid diet - Octreotide gtt discontinued - Serial CBC ETOH dependency with withdrawal, Acute encephalopathy - CIWA, ativan doses decreased as patient has become lethargic - Thiamine - folic acid Hep C - outpatient follow-up Thrombocytopenia -Likely secondary to underlying liver disease -Follow CBC Tobacco abuse - nicotine replacement - cessation DVT prophylaxis: SCDs Discussed with: Patient, nursing Anticipated discharge: 2-[address]: Home A total of 25 minutes was spent on the care of this complex patient more than 50% of the time was spent in counseling and care coordination.
--- NOTE | 2019-11-11 20:47 | PN ---
PROGRESS NOTE DATE OF SERVICE: 11/11/2019 Patient is a 59-year-old pleasant white male admitted to the hospital with acute upper GI bleed with history of alcoholic cirrhosis of the liver. He underwent an upper endoscopy yesterday that showed moderate portal hypertensive gastropathy. There was very small esophageal varix. The patient remains on IV Protonix. Sandostatin was discontinued yesterday after the EGD. He is doing well. No further episodes of bleeding. PHYSICAL EXAMINATION: He appears comfortable. No apparent distress. Vital signs are stable. Blood pressure 104/82, pulse rate 54, temperature 98.4. HEENT examination unremarkable. Conjunctivae pink. Sclerae anicteric. Oral cavity no lesions. NECK: No JVD or lymph node enlargement. CHEST was auscultation. HEART: Regular rate and rhythm. ABDOMEN: Soft, nontender, nondistended. Bowel sounds are positive. No organomegaly. EXTREMITIES: No pedal edema. NEUROLOGIC: Alert and oriented x3. No focal deficits. LABS: WBC 5.4, hemoglobin 7.3, platelets 151. BUN and creatinine are 26 and 0.86 respectively. IMPRESSION: 1. Acute upper gastrointestinal bleed status post EGD yesterday that revealed portal hypertensive gastropathy and small esophageal varices. No active bleeding noted. 2. History of alcoholism. 3. Alcoholic cirrhosis of the liver with mild elevation of serum transaminases. RECOMMENDATION: 1. Continue with Protonix. 2. Advance diet as tolerated. 3. Monitor CBC on a daily basis. 4. He can be transferred to the ICU. 5. We will follow with you closely. Thank you for this consultation. MMODL / IJN: [id number] /
[2019-11-12 04:45] LABS: Anisocytosis Slight; HCT 24.5 % (39.0-53.0); HGB 7.6 gm/dL (13.0-17.5); Hypochromasia Slight; MCH 26.3 pg (25.0-35.0); MCV 84.8 fL (80.0-100.0); Mean Platelet Volume 8.1; Platelet Count 155 k/uL (150-450); RBC 2.89 m/uL (4.30-5.90); WBC 5.6 k/uL (3.8-10.6)
[2019-11-12 05:04] LABS: ALT 35 U/L (4-49); AST 72 U/L (17-59); African American GFR (CKD) >90 (>60 ml/min/1.73 sqM); Albumin 2.7 g/dL (3.5-5.0); Alkaline Phosphatase 72 U/L (38-126); Anion Gap 4 mmol/L; Blood Urea Nitrogen 15 mg/dL (9-20); Calcium 7.8 mg/dL (8.4-10.2); Carbon Dioxide 24 mmol/L (22-30); Chloride 105 mmol/L (98-107); Glucose 95 mg/dL (74-99); Magnesium 1.9 mg/dL (1.6-2.3); Non-African American GFR(CKD) >90 (>60 ml/min/1.73 sqM); Potassium 3.7 mmol/L (3.5-5.1); Sodium 133 mmol/L (137-145); Total Bilirubin 0.8 mg/dL (0.2-1.3); Total Protein 6.1 g/dL (6.3-8.2)
[2019-11-12] MEDS: THIAMINE 100 MG TAB PO SCH (06:31)
[2019-11-12] MEDS: SODIUM CHLORIDE 0.45% 1,000 ML IV SCH (06:32)
[2019-11-12] MEDS ORDERED: POTASSIUM CHLORIDE ER 20 MEQ TAB.ER PO SCH (07:00)
[2019-11-12 08:27] VITALS: RESP 18; TEMP 97.3
--- NOTE | 2019-11-12 09:20 | PN ---
PROGRESS NOTE DATE OF SERVICE: 11/12/2019 Patient is a 59-year-old white male admitted to the hospital with acute upper GI bleed, history of alcoholic cirrhosis of the liver, who lives in [place]. He had an EGD done 2 days ago that showed [id number] portal hypertensive gastropathy and small esophageal varices. The patient remains in ICU, doing well. No further bleeding. No new symptoms. PHYSICAL EXAMINATION: Appears comfortable, no apparent distress. Vital signs stable. Blood pressure 151/92, pulse rate 59, temperature 97. HEENT: Examination unremarkable. Conjunctivae are pink. Sclerae anicteric. Oral cavity no lesions. NECK: No JVD or lymph node enlargement. CHEST: Clear to auscultation. HEART: Regular rate and rhythm. ABDOMEN: Soft, bowel sounds are positive. No organomegaly. EXTREMITIES: No pedal edema. NEUROLOGIC: Alert and oriented x3. No focal deficits. LABS: WBC 5.6, hemoglobin 7.6, platelets normal. Basic metabolic panel is within normal limits. BUN and creatinine are 15 and 0.57. T-bilirubin 0.8, AST of 72, ALT 35. IMPRESSION: 1. Alcoholic cirrhosis of the liver. 2. History of heavy alcohol abuse. 3. Acute upper gastrointestinal bleed status post EGD 2 days ago that showed portal hypertensive gastropathy. Clinically no active bleeding currently. Hemoglobin stable at 7.5 g/dL. RECOMMENDATIONS: 1. The patient will be transferred to the floor. 2. Continue Protonix 40 mg daily. 3. Advance diet as tolerated. 4. Monitor CBC closely and if he is stable, he can be discharged home tomorrow. Thank you for this consultation. MMODL / MAKEDAN: [id number] /
[2019-11-12] MEDS: PANTOPRAZOLE 40 MG/10 ML VIAL IVP SCH (09:29)
[2019-11-12] MEDS: FOLIC ACID 1 MG TAB PO SCH (09:30)
[2019-11-12 09:33] VITALS: BP 137/80; PULSE 54
--- NOTE | 2019-11-12 12:02 | PN ---
PROGRESS NOTE DATE OF SERVICE: November 12, 2019 This is a 59-year-old gentleman who was admitted with a gastrointestinal bleed. He was thought to have alcoholic gastritis and alcoholic gastropathy. He also was found to have moderate to severe portal hypertension, without esophageal gastric varices. He has had no further bleeding. He is on room air. He is getting saline at 75 mL an hour. He was having some issues with alcohol withdrawal. He responded very nicely to small doses of Ativan. Currently doing well in that regard. He also has a history of hepatitis C, anemia, alcoholic liver disease and a recent episode of GI bleed where he resides in [place]. Currently, he is feeling much improved. PHYSICAL EXAMINATION: VITAL SIGNS: Current vital signs include temperature 97.3, heart rate 59, respiratory rate 18, blood pressure 137/80, mean 99. Room air saturation 94%-95%. Appears in no acute distress. HEENT: Examination is grossly unremarkable. Mucous membranes are moist. NECK: Supple. Full range of motion. No adenopathy. Neck veins are flat. CARDIOVASCULAR: Examination reveals regular rhythm and rate. LUNGS: Reveal mostly clear breath sounds. A few scattered mild rhonchi. No wheezes or crackles. ABDOMEN: Soft. Bowel sounds are heard. EXTREMITIES are intact. No cyanosis, clubbing, or edema. SKIN is without rash. NEUROLOGIC: Examination is brief but non focal. LABS: Reviewed. White count 5.6, hemoglobin 7.6, hematocrit 24.5, platelets 25,000. Sodium 133, potassium 3.7, chloride 105, CO2 24. Anion gap 4, BUN and creatinine were 15 and 0.57. The rest of the labs look pretty reasonable. No microbiology to report. No x-rays to report. MEDICATIONS: Reviewed. Currently he is on folic acid, Ativan morphine sulfate, Narcan, Zofran, Protonix, potassium replacement, and saline IV. He is also getting thiamine. ASSESSMENT: 1. Gastrointestinal bleed, secondary to alcoholic gastritis and alcoholic gastropathy with moderate to severe portal hypertension and without esophageal or gastric varices. 2. Recent episode of gastrointestinal bleed, in [place] in late July, status post EGD with cauterization. 3. Alcoholic liver disease with mild alcoholic coagulopathy. 4. Anemia, secondary to GI bleed. 5. History of hepatitis C. 6. Vague history of hypertension. 7. Vague history of esophageal varices. 8. History of chronic alcohol and tobacco abuse. 9. General medical debility. PLAN: The patient can be transferred out to general medical floor. We will continue to monitor his hemoglobin closely. He is hemodynamically stable. Respiratory status is stable. In addition, he is not manifesting any signs or symptoms at this time of alcohol withdrawal syndrome. MMODL / MAKEDAN: [id number] /
--- NOTE | 2019-11-12 14:05 | P.DS ---
Providers Date of admission: 11/10/19 04:42 Expected date of discharge: 11/12/19 Attending physician: Isaiah Ledesma MD Consults: 11/10/19 04:43 Consult Physician Stat Consulting Provider: Thomas Interiano Consult Reason/Comments: GI bleed, history of Do you want consulting provider notified?: Yes, Notify in am 11/10/19 05:07 Consult Physician Stat Consulting Provider: Ford Reynolds Consult Reason/Comments: ICU admission Do you want consulting provider notified?: Already Contacted Primary care physician: Physician Nonstaff Hospital Course: Discharge Diagnosis: Upper GI bleed secondary to portal hypertensive gastropathy Acute blood loss anemia Alcohol withdrawal Toxic metabolic encephalopathy secondary to alcohol withdrawal Alcohol dependency Hepatitis C Thrombocytopenia Tobacco abuse Cachexia BMI 18.7 Mild coagulopathy Transaminitis likely due to ETOH use Hospital Course: Patient is a 59-year-old male with a history of prior esophageal bleeding with esophageal perforation, hepatitis C, and alcohol dependency who presented to the hospital secondary to GI bleed area of note patient reports an episode of GI bleeding in July 2019. He lives in [place] and was hospitalized at that point in time an upper and lower endoscopy that needed some apparent either his esophagus or stomach. He was on vacation here in the [place] area and developed bloody emesis and melena and presented to the hospital. On arrival to the ER here his vital signs were within normal limits. Laboratory analysis showed a hemoglobin of 8.6 with an unknown baseline. He was at admitted for possible GI bleed. He was started on IV Protonix twice daily, octreotide, CIWA protocol, and IV fluids. Gastroenterology was consulted and serial CBCs were ordered. Her underwent EGD on 11/09 which showed Severe portal hypertnesive gastropathy but no varicies, and old blood as noted in the stomach without active bleeding. He did develop some bradycardia overnight on 11/09. His diet was slowly reintroduced and his blood count remains stable. He did require several doses of Ativan for possible alcohol withdrawal. Of note the patient does not believe that any of his problems are alcohol-related, and states that this is all false and he has had continued bleeding because the prior physician messed up. I counseled him extensively that I advise for him to stop drinking and feel that these changes are related to alcohol. Ideally we had one note serves him until 7/13 he did not develop any recurrent bleeding to tolerate by mally sharma. However the patient was very distressed and upset and wanted to leave on 11/11. His vital signs and hemoglobin were stable. Therefore he was discharged at his request. He will increase his antacid from omeprazole 20 mg daily to Protonix 40 mg twice daily. He has been counseled not to use any NSAID products. I did given him the number of the PCP to follow-up within the area, and he will follow-up with Dr. Baptiste our GI. However he does plan on going back to [place] shortly. He was not manifesting any signs of alcohol withdrawal on discharge. Patient seen and examined at bedside. Patient states he has tolerated his diet. His abdominal pain is better than yesterday. No nausea, no vomiting. Wants to go home. Vital signs reviewed and stable. General: non toxic, no distress, disheveled, appears older than stated age, cachectic with temporal wasting Derm: warm, dry Head: atraumatic, normocephalic, symmetric Eyes: EOMI, no lid lag, anicteric sclera Mouth: no lip lesion, mucus membranes moist Cardiovascular: S1S2 reg, no murmur, positive posterior tibial pulse bilateral, Lungs: Decreased breath sounds bilateral, no rhonchi, no rales , no accessory muscle use Abdominal: soft, nontender to palpation, no guarding, no appreciable organomegaly Ext: no gross muscle atrophy, no edema, no contractures Neuro: CN II-XI grossly intact, no focal neuro deficits Psych: Alert, oriented, angry, upset, and agitated A total of 35 minutes of time were spent preparing this complex discharge summary . Patient Condition at Discharge: Stable Plan - Discharge Summary Discharge Rx Participant: Yes New Discharge Prescriptions: New Folic Acid 1 mg PO DAILY #30 tab Pantoprazole [Protonix] 40 mg PO BID #60 tablet. Thiamine [Vitamin B-1] 100 mg PO BID-W/MEALS #60 tab Discontinued Omeprazole 20 mg PO DAILY Ibuprofen [Motrin Ib] 200 mg PO Q8H PRN PRN Reason: Pain Or Fever > 100.5 Discharge Medication List Folic Acid 1 mg PO DAILY #30 tab 11/12/19 [Rx] Pantoprazole [Protonix] 40 mg PO BID #60 tablet. 11/12/19 [Rx] Thiamine [Vitamin B-1] 100 mg PO BID-W/MEALS #60 tab 11/12/19 [Rx] Follow up Appointment(s)/Referral(s): Nonstaff,Physician [Primary Care Provider] - 1-2 days Michelle Baptiste MD [STAFF PHYSICIAN] - 1 Week Jose Ibarra MD [STAFF PHYSICIAN] - 1 Week Patient Instructions/Handouts: Gastrointestinal Bleeding (DC), Iron Deficiency Anemia (DC), Abuse of Alcohol (DC) Activity/Diet/Wound Care/Special Instructions: Activity: as tolerated Diet: Soft foods for 4 days Special Instructions: No motrin, aspirin, aleve, ibuprofen Abstain from Alcohol Discharge Disposition: HOME SELF-CARE
== END 2019-11-12 14:04 | disposition home or self-care (01) | DRG 441 ==
LOC: EC 02:46 → 2SICU 04:42
PROVIDERS: ADMIT Internal Medicine; ATTEND Internal Medicine
PROC: 0DJ08ZZ Inspection of Upper Intestinal Tract, Via Natural or Artificial Opening Endoscopic (ICD-10-PCS; principal; 2019-11-10 08:40)
DX: K76.6 Portal hypertension (principal); K22.3 Perforation of esophagus; G92 Toxic encephalopathy; E87.2 Acidosis; D62 Acute posthemorrhagic anemia; R64 Cachexia; Z68.1 Body mass index [BMI] 19.9 or less, adult; D68.9 Coagulation defect, unspecified; F10.239 Alcohol dependence with withdrawal, unspecified; I85.00 Esophageal varices without bleeding; D69.6 Thrombocytopenia, unspecified; K70.30 Alcoholic cirrhosis of liver without ascites; R00.1 Bradycardia, unspecified; F17.200 Nicotine dependence, unspecified, uncomplicated; F12.90 Cannabis use, unspecified, uncomplicated; B18.2 Chronic viral hepatitis C; K31.89 Other diseases of stomach and duodenum; I10 Essential (primary) hypertension; G89.29 Other chronic pain
CPT/HCPCS: 36415; 43235; 74022; 80053; 83605; 83735; 84484; 85025; 85027; 85610; 85730; 96361; 96365; 96375; 99285